=== PATIENT | female | born 1990 ===

== ENCOUNTER 2020-07-06 10:56 | Emergency (ER) | payer OTHER ==
[~2020-07-06] VITALS: Ht 170.2 cm; Wt 65.0 kg
[2020-07-06 11:01] VITALS: BP 113/72
== END 2020-07-06 13:58 | disposition home or self-care (01) ==
LOC: ER 10:58
DX: F15.10 Other stimulant abuse, uncomplicated (principal); F17.200 Nicotine dependence, unspecified, uncomplicated
CPT/HCPCS: 99281

== ENCOUNTER 2020-09-26 13:05 | Emergency (ER) | payer MEDICAID | END 2020-09-26 14:14 | disposition left against medical advice (07) | LOC: ER 13:05 | DX: R56.9 Unspecified convulsions (principal); Z53.21 Procedure and treatment not carried out due to patient leaving prior to being seen by health care provider ==

== ENCOUNTER 2021-01-26 10:46 | Emergency (ER) | payer MEDICAID ==
[~2021-01-26] VITALS: Ht 165.1 cm; Wt 64.4 kg
[2021-01-26 11:30] VITALS: BP 105/66
== END 2021-01-26 13:21 | disposition left against medical advice (07) ==
LOC: ER 10:47
DX: L02.413 Cutaneous abscess of right upper limb (principal); Z53.21 Procedure and treatment not carried out due to patient leaving prior to being seen by health care provider